=== PATIENT | male | born 1980 | race Two or more races ===

== ENCOUNTER 2023-10-13 10:53 | Emergency (ER) | payer OTHER ==
[~2023-10-13] VITALS: Ht 182.9 cm; Wt 90.7 kg
[2023-10-13] MEDS ORDERED: OTEZLA30 MG PO (11:28)
[2023-10-13] MEDS ORDERED: EMTRICITABINE-1 EACH PO (11:29)
[2023-10-13] MEDS ORDERED: FAMOtidine 10 MG/ML (4ML VIAL) IV ONE (12:00)
[2023-10-13] MEDS ORDERED: ONDANSETRON HCL 2 MG/ML VIAL IV ONE (12:00)
[2023-10-13] MEDS ORDERED: 0.9 % SODIUM CHLORIDE 500 ML IV ONE (12:00)
[2023-10-13] MEDS ORDERED: ONDANSETRON HCL 2 MG/ML VIAL ONE (12:14)
[2023-10-13] MEDS ORDERED: FAMOtidine 200mg/20ml VIAL ONE (12:14)
[2023-10-13 13:08] LABS: HEMATOCRIT 49.3 % (39.0-48.0); HEMOGLOBIN 17.4 g/dL (13-16.00); MEAN CELL VOLUME 89.2 fL (80.0-100.00); MEAN CORPUSCULAR HEMOGLOBIN 31.5 pg (27.00-32.0); MEAN CORPUSCULAR HGB CONC 35.3 g/dl (32.0-36.0); PLATELET COUNT 233 K/uL (150-450); RED BLOOD COUNT 5.53 M/uL (4.00-6.00); RED CELL DISTRIBUTION WIDTH 13.6 % (11.5-14.5)
[2023-10-13 13:43] LABS: ALBUMIN 4.6 gm/dL (3.4-5.0); BILIRUBIN TOTAL 0.76 mg/dL (0.3-1.2); CALCIUM 9.5 mg/dL (8.5-10.1); CREATININE SERUM 1.28 mg/dL (0.70-1.30); GFR 61.63; GLOBULINA 3.9 G/DL (2.4-3.5); POTASSIUM 4.07 mEq/L (3.5-5.1); TOTAL PROTEIN 8.5 gm/dL (6.4-8.2)
== END 2023-10-13 14:50 | disposition home or self-care (01) ==
LOC: ER 10:54
PROVIDERS: General Practice
DX: K80.20 Calculus of gallbladder without cholecystitis without obstruction (principal); R10.11 Right upper quadrant pain; L40.8 Other psoriasis

== ENCOUNTER 2023-12-29 07:58 | Outpatient (CLI) | payer OTHER ==
[~2023-12-29 07:58] MED LIST: EMTRICITABINE-1 EACH PO; OTEZLA30 MG PO
== END 2023-12-29 08:09 | disposition home or self-care (01) ==
LOC: SONOGRAMA 07:58
PROVIDERS: ATTEND Internal Medicine Gastroenterology
DX: R10.13 Epigastric pain (principal)